=== PATIENT | male | born 1995 | race Caucasian/White ===

== ENCOUNTER 2017-04-30 12:50 | Emergency (ER) | payer BC ==
[2017-04-30 12:52] VITALS: BP 149/69; PULSE 66; RESP 20; TEMP 99; O2SAT 99
[2017-04-30 13:15] VITALS: BP 134/63; PULSE 66; RESP 18; O2SAT 99
--- NOTE | 2017-04-30 13:43 | PD ---
HPI Chief Complaint: Chest Pain Time Seen by Provider: 13:42 Travel History International Travel<30 days: No Contact w/Intl Traveler<30days: No Traveled to known affect area: No History of Present Illness HPI This 21-year-old male presents after having palpitations. Says last night he wishes sitting up iwith an elephant sitting on his chest. He says it lasted for about an hour. He took Motrin on the symptoms resolved. At 1130 this morning he was not classically had some palpitations he felt dizzy lightheaded. He had some tingling on the left side of his jaw. He has a slight pressure in the chest. He has no history of heart disease. He does not smoke. He has no hypertension or diabetes. There is no family history of heart disease. 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 HEAD: Atraumatic. Normocephalic. EYES: Pupils equal and round. No scleral icterus. No injection or drainage. ENT: No nasal bleeding or discharge. Mucous membranes pink and moist. NECK: Trachea midline. No JVD. CARDIOVASCULAR: Regular rate and rhythm. No murmur appreciated. RESPIRATORY: No accessory muscle use. Clear to auscultation. Breath sounds equal bilaterally. GASTROINTESTINAL: Abdomen soft, non-tender, nondistended. Hepatic and splenic margins not palpable. MUSCULOSKELETAL: No obvious deformities. No clubbing. No cyanosis. No edema. NEUROLOGICAL: Awake and alert. No obvious cranial nerve deficits. Motor grossly within normal limits. Normal speech. PSYCHIATRIC: Appropriate mood and affect; insight and judgment normal. Data Data Last Documented VS Vital Signs Date Time Temp Pulse Resp B/P (MAP) Pulse Ox O2 Delivery O2 Flow Rate FiO2 04/30/17 13:10 20 100 Room Air 04/30/17 12:52 99.0 66 149/69 (95) Orders Orders Electrocardiogram (04/30/17 13:43) Basic Metabolic Panel (Bmp) (04/30/17 13:43) Complete Blood Count With Diff (04/30/17 13:43) Troponin I (04/30/17 13:43) Chest, Single Ap (04/30/17 13:43) Ecg Monitoring (04/30/17 13:43) Iv Access Insert/Monitor (04/30/17 13:43) Labs Laboratory Tests Test 04/30/17 14:15 White Blood Count 4.3 TH/MM3 Red Blood Count 5.08 MIL/MM3 Hemoglobin 15.0 GM/DL Hematocrit 45.7 % Mean Corpuscular Volume 90.0 FL Mean Corpuscular Hemoglobin 29.6 PG Mean Corpuscular Hemoglobin Concent 32.9 % Red Cell Distribution Width 11.9 % Platelet Count 214 TH/MM3 Mean Platelet Volume 8.4 FL Neutrophils (%) (Auto) 59.9 % Lymphocytes (%) (Auto) 28.3 % Monocytes (%) (Auto) 7.2 % Eosinophils (%) (Auto) 3.8 % Basophils (%) (Auto) 0.8 % Neutrophils # (Auto) 2.6 TH/MM3 Lymphocytes # (Auto) 1.2 TH/MM3 Monocytes # (Auto) 0.3 TH/MM3 Eosinophils # (Auto) 0.2 TH/MM3 Basophils # (Auto) 0.0 TH/MM3 CBC Comment DIFF FINAL Differential Comment Blood Urea Nitrogen 14 MG/DL Creatinine 0.95 MG/DL Random Glucose 92 MG/DL Calcium Level 9.2 MG/DL Sodium Level 139 MEQ/L Potassium Level 4.1 MEQ/L Chloride Level 105 MEQ/L Carbon Dioxide Level 27.5 MEQ/L Anion Gap 7 MEQ/L Estimat Glomerular Filtration Rate 99 ML/MIN Troponin I LESS THAN 0.02 NG/ML MDM Medical Decision Making Medical Screen Exam Complete: Yes Emergency Medical Condition: Yes Medical Record Reviewed: Yes Differential Diagnosis Differential includes anxiety, stress, coronary artery disease Narrative Course EKG shows normal sinus rhythm. Troponins normal. Chest x-ray negative. Patient has a healthy young man he has no exertional pain stable for discharge. He does admit that school has been stressful in the wonders if this might be an etiology. It may well be. He has urged to return if symptoms should recur otherwise follow-up with his own medical doctor Diagnosis Primary Impression: Chest pain Additional Instructions: Return as needed, follow up with your medical doctor Scripts No Active Prescriptions or Reported Meds Disposition: 01 DISCHARGE HOME Condition: Stable Glen Ponce MD Apr 30, 2017 13:43
[2017-04-30 13:45] VITALS: BP 122/61; PULSE 64; RESP 18; O2SAT 99
[2017-04-30 14:15] VITALS: BP 148/68; PULSE 72; RESP 18; O2SAT 99
--- NOTE | 2017-04-30 14:15 | RADRPT ---
EXAM DATE/TIME: 04/30/2017 13:58 [facility] COMPARISON: No previous studies available for comparison. INDICATIONS : Chest pain since yesterday. MEDICAL HISTORY : None. SURGICAL HISTORY : None. ENCOUNTER: Initial ACUITY: 1 day PAIN SCORE: 4/10 LOCATION: Bilateral chest FINDINGS: A single view of the chest demonstrates the lungs to be symmetrically aerated without evidence of mas s, infiltrate or effusion. The cardiomediastinal contours are unremarkable. Osseous structures are intact. CONCLUSION: Normal examination. Victor Hugo Ramos MD on April 30, 2017 at 14:13 Board Certified Radiologist. This report was verified electronically.
[2017-04-30 14:24] LABS: AUTOMATED NEUTROPHIL # 2.6 TH/MM3 (1.8-7.7); BASOPHIL % 0.8 % (0.0-2.0); EOSINOPHIL # 0.2 TH/MM3 (0-0.4); EOSINOPHIL % 3.8 % (0.0-4.0); HEMATOCRIT 45.7 % (39.0-51.0); LYMPH % 28.3 % (9.0-44.0); LYMPHOCYTE # 1.2 TH/MM3 (1.0-4.8); MEAN CORPUSCULAR HEMOGLOBIN 29.6 PG (27.0-34.0); MEAN CORPUSCULAR HGB CONC 32.9 % (32.0-36.0); MEAN PLATELET VOLUME 8.4 FL (7.0-11.0); MONO % 7.2 % (0.0-8.0); MONOCYTE # 0.3 TH/MM3 (0-0.9); NEUT % 59.9 % (16.0-70.0); PLATELET COUNT 214 TH/MM3 (150-450); RED BLOOD COUNT 5.08 MIL/MM3 (4.50-5.90); RED CELL DISTRIBUTION WIDTH 11.9 % (11.6-17.2); WHITE BLOOD COUNT 4.3 TH/MM3 (4.0-11.0)
[2017-04-30 14:38] LABS: CHLORIDE 105 MEQ/L (98-107); SODIUM (NA) 139 MEQ/L (136-145)
[2017-04-30 14:42] LABS: BICARBONATE 27.5 MEQ/L (21.0-32.0); BLOOD UREA NITROGEN 14 MG/DL (7-18); CALCIUM 9.2 MG/DL (8.5-10.1); GLUCOSE,RANDOM 92 MG/DL (74-106)
[2017-04-30 14:45] VITALS: BP 133/58; PULSE 74; RESP 18; O2SAT 99
[2017-04-30 14:46] LABS: CREATININE 0.95 MG/DL (0.60-1.30); GLOMERULAR FILTRATION RATE 99 ML/MIN (>89)
[2017-04-30 14:50] LABS: TROPONIN I LESS THAN 0.02 NG/ML (0.02-0.05)
[2017-04-30 15:15] VITALS: BP 155/67; PULSE 76; RESP 18; O2SAT 97
--- NOTE | 2017-05-01 08:09 | EKG ---
Date Performed: 04/30/2017 Time Performed: 13:52:39 PTAGE: 21 years EKG: Sinus rhythm INCOMPLETE RIGHT BUNDLE BRANCH BLOCK BORDERLINE ECG NO PREVIOUS TRACING DOCTOR: Bandar Hong Interpretating Date/Time 05/01/2017 08:08:11
== END 2017-04-30 15:45 | disposition home or self-care (01) ==
LOC: PHED 12:50
DX: R07.9 Chest pain, unspecified (principal)
CPT/HCPCS: 71045; 80048; 84484; 85025; 93005; 99285